=== PATIENT | female | born 1970 | race African-American/Black ===

== ENCOUNTER → 2016-05-24 | Outpatient (CLI) | payer BC | LOC: BHSO 15:10 | DX: F31.81 Bipolar II disorder (principal) ==

== ENCOUNTER → 2016-06-26 | Outpatient (CLI) | payer BC | LOC: COL.RAD 08:07 | DX: M41.85 Other forms of scoliosis, thoracolumbar region (principal) ==

== ENCOUNTER → 2016-08-28 | Outpatient (CLI) | payer BC | LOC: BHSO 09:31 | DX: F31.81 Bipolar II disorder (principal) ==

== ENCOUNTER → 2016-11-29 | Outpatient (CLI) | payer BC | LOC: BHSO 15:02 | DX: F31.81 Bipolar II disorder (principal) ==

== ENCOUNTER → 2017-01-22 | Outpatient (CLI) | payer BC | LOC: BHSO 15:21 | DX: F31.81 Bipolar II disorder (principal) ==

== ENCOUNTER → 2017-04-23 | Outpatient (CLI) | payer BC | LOC: BHSO 15:04 | DX: F31.74 Bipolar disorder, in full remission, most recent episode manic (principal) ==

== ENCOUNTER → 2017-07-16 | Outpatient (CLI) | payer BC | LOC: BHSO 14:39 | DX: F31.76 Bipolar disorder, in full remission, most recent episode depressed (principal) | CPT/HCPCS: G0463 ==

== ENCOUNTER → 2017-10-15 | Outpatient (CLI) | payer BC | LOC: BHSO 16:03 | DX: F31.31 Bipolar disorder, current episode depressed, mild (principal) | CPT/HCPCS: G0463 ==

== ENCOUNTER → 2018-01-14 | Outpatient (CLI) | payer BC | LOC: BHSO 16:06 | DX: F31.81 Bipolar II disorder (principal) | CPT/HCPCS: G0463 ==

== ENCOUNTER → 2018-05-01 | Outpatient (CLI) | payer BC | LOC: BHSO 16:19 | DX: F31.76 Bipolar disorder, in full remission, most recent episode depressed (principal) | CPT/HCPCS: G0463 ==

== ENCOUNTER → 2018-06-06 | Outpatient (CLI) | payer BC | LOC: MC.RAD 10:46 | DX: Z12.31 Encounter for screening mammogram for malignant neoplasm of breast (principal); Z98.82 Breast implant status ==

== ENCOUNTER → 2018-08-18 | Outpatient (CLI) | payer BC | LOC: BHSO 14:24 | DX: F31.61 Bipolar disorder, current episode mixed, mild (principal) | CPT/HCPCS: G0463 ==

== ENCOUNTER → 2018-10-20 | Outpatient (CLI) | payer BC | LOC: BHSO 14:02 | DX: F31.76 Bipolar disorder, in full remission, most recent episode depressed (principal) | CPT/HCPCS: G0463 ==

== ENCOUNTER 2018-12-18 08:00 | Outpatient (RCR) | payer BC | END 2019-03-18 | disposition still patient (30) | LOC: MKS.ESL.PT | DX: H81.13 Benign paroxysmal vertigo, bilateral (principal) ==

== ENCOUNTER → 2019-01-19 | Outpatient (CLI) | payer BC | LOC: BHSO 14:21 | DX: F31.76 Bipolar disorder, in full remission, most recent episode depressed (principal) | CPT/HCPCS: G0463 ==

== ENCOUNTER → 2019-05-28 | Outpatient (CLI) | payer BC | LOC: BHSO 15:21 | DX: F31.75 Bipolar disorder, in partial remission, most recent episode depressed (principal) | CPT/HCPCS: G0463 ==

== ENCOUNTER → 2019-10-30 | Outpatient (CLI) | payer BC | LOC: BHSO 09:48 | DX: F31.81 Bipolar II disorder (principal) | CPT/HCPCS: G0463 ==

== ENCOUNTER → 2020-01-25 | Outpatient (CLI) | payer BC | LOC: BHSO 09:01 | DX: F31.76 Bipolar disorder, in full remission, most recent episode depressed (principal) | CPT/HCPCS: G0463 ==

== ENCOUNTER → 2020-02-23 | Outpatient (CLI) | payer BC | LOC: MC.RAD 16:45 | DX: Z12.31 Encounter for screening mammogram for malignant neoplasm of breast (principal); Z98.82 Breast implant status ==

== ENCOUNTER → 2020-06-13 | Outpatient (CLI) | payer BC | LOC: COL.RAD 12:30 | DX: R10.12 Left upper quadrant pain (principal) | CPT/HCPCS: Q9967 ==

== ENCOUNTER → 2021-12-05 | Outpatient (CLI) | payer BC | LOC: COL.RAD 09:11 | DX: D72.819 Decreased white blood cell count, unspecified (principal) ==